=== PATIENT | male | born 1970 | race African-American/Black ===

== ENCOUNTER 2016-11-12 08:15 | Emergency (ER) | payer SELFPAY | END 2016-11-12 09:05 | disposition home or self-care (01) | LOC: CED 08:15 | DX: K04.7 Periapical abscess without sinus (principal); F17.210 Nicotine dependence, cigarettes, uncomplicated; Z88.0 Allergy status to penicillin | CPT/HCPCS: 99282 ==

== ENCOUNTER 2016-12-21 14:51 | Emergency (ER) | payer OTHER ==
[~2016-12-21] VITALS: Ht 162.6 cm; Wt 70.3 kg
== END 2016-12-21 15:56 | disposition home or self-care (01) ==
LOC: CFTX 14:51 → CED 14:51 → CFTX 15:50
DX: K08.89 Other specified disorders of teeth and supporting structures (principal); M62.838 Other muscle spasm; Z88.0 Allergy status to penicillin; F17.200 Nicotine dependence, unspecified, uncomplicated; R56.9 Unspecified convulsions
CPT/HCPCS: 99283